=== PATIENT | female | born 1975 | race African-American/Black ===

== ENCOUNTER → 2023-11-26 | Outpatient (CLI) | payer OTHER ==
[~2023-11-26] MED LIST: Ondansetron Odt8 MG MM; PRAZ1 PO; Seroquel400 MG PO; VENL150ER PO; VITAMIN D-32000 UNIT PO
== END ==
LOC: LAB 13:38 → LAB SHORT 13:38
DX: Z09 Encounter for follow-up examination after completed treatment for conditions other than malignant neoplasm (principal); Z87.42 Personal history of other diseases of the female genital tract
CPT/HCPCS: 88305

== ENCOUNTER → 2023-12-10 | Outpatient (CLI) | payer OTHER ==
[2023-12-12 15:51] LABS: APTIMA MEDIA TYPE Unisex Swab; C. TRACHOMATIS BY TMA Negative (Negative); N. GONORRHOEAE BY TMA Negative (Negative); SPECIMEN SOURCE Vaginal; T. VAGINALIS BY TMA Negative (Negative)
== END ==
LOC: LAB SHORT 11:30 → LAB 11:30
PROVIDERS: Family Medicine
DX: Z11.3 Encounter for screening for infections with a predominantly sexual mode of transmission (principal)
CPT/HCPCS: 87491; 87591; 87661

== ENCOUNTER 2024-05-26 16:36 | Inpatient (IN) | payer OTHER ==
[~2024-05-26] VITALS: Ht 165.1 cm; Wt 77.1 kg
[~2024-05-26 16:36] MED LIST changes: +BENZTROPINE MESY1 M6 PO; +DULOXETINE HCL60 M1 PO; +EUTHYROX75 MC1 PO; +LISINOPRIL-HCT1 EACH PO; +TRAZ150T57 PO
[2024-05-26 17:45] LABS: BASOPHILS ABSOLUTE AUTO 0.03 K/mm3 (0.00-0.23); BASOPHILS PERCENT AUTO 0 % (0-2); EOSINOPHILS ABSOLUTE AUTO 0.33 K/mm3 (0.00-0.68); EOSINOPHILS PERCENT AUTO 4 % (0-6); Hematocrit 38.9 % (33.0-51.0); Hemoglobin 13.4 g/dL (11.5-16.0); IMMATURE GRAN ABSOLUTE AUTO 0.03 K/mm3 (0.00-0.10); IMMATURE GRAN PERCENT AUTO 0 % (0-1); LYMPHOCYTES ABSOLUTE AUTO 1.28 K/mm3 (0.84-5.20); LYMPHOCYTES PERCENT AUTO 17 % (21-46); MONOCYTES ABSOLUTE AUTO 0.85 K/mm3 (0.16-1.47); MONOCYTES PERCENT AUTO 11 % (4-13); Mean Corpuscular HGB 31.1 pg (26.0-34.0); Mean Corpuscular HGB Conc 34.4 g/dL (31.5-36.5); Mean Corpuscular Volume 90 fL (80-100); Mean Platelet Volume 9.7 fL (9.1-12.4); NEUTROPHILS ABSOLUTE AUTO 5.06 K/mm3 (1.96-9.15); NEUTROPHILS PERCENT AUTO 67 % (41-73); Platelet Count 299 K/mm3 (150-400); RDW Coefficient Variation 12.2 % (11.7-14.2); RDW Standard Deviation 40.5 fL (35.1-46.3); Red Blood Cell Count 4.31 M/mm3 (3.80-5.20); White Blood Cell Count 7.58 K/mm3 (4.00-11.30)
[2024-05-26 17:59] LABS: Albumin, Blood 3.2 g/dL (3.4-5.0); Albumin/Globulin Ratio 0.8 (0.8-1.8); Bilirubin, Total 0.8 mg/dL (0.1-1.0); Bun/Creatinine Ratio 11.8 (12.0-20.0); Calcium, Blood 9.4 mg/dL (8.5-10.1); Creatinine, Blood 0.85 mg/dL (0.40-1.00); Globulin, Blood 3.8 g/dL (2.2-4.0); Potassium, Blood 3.4 mmol/L (3.5-5.5)
[2024-05-26 22:47] LABS: Source, Urine Clean Catch
[2024-05-26 22:55] LABS: Appearance, Urine Clear (Clear); Bilirubin, Urine Neg (Neg); Blood, Urine Neg (Neg); Color, Urine Yellow (P-Yellow); Glucose Qualitative, Urine Neg (Neg); Ketones, Urine 3+ (Neg); Leukocyte Esterase, Urine Neg (Neg); Nitrite, Urine Neg (Neg); Protein, Urine 2+ (Neg); Specific Gravity, Urine 1.005 (1.003-1.022); Urobilinogen, Urine 2+ (Normal)
[2024-05-26 23:12] LABS: Bacteria Few /hpf; Red Blood Cells, Urine 0-2 /hpf (0-2); Squamous Epithelial Cells Many /hpf (Few); White Blood Cells, Urine 0-2 /hpf (0-5)
[2024-05-27] VITALS (18 sets, daily range): BP systolic 92–134; BP diastolic 59–97
[2024-05-27] MEDS ORDERED: Potassium Chl 20MEQ/Water100ML 100 ML IV SCH (00:05)
[2024-05-27] MEDS ORDERED: Lactated Ringer's 1,000 ML IV SCH ×2 (00:05→10:05)
[2024-05-27] MEDS ORDERED: NS 1,000 ML IV SCH (00:30)
[2024-05-27] MEDS ORDERED: FentaNYL Citrate 50 MCG/ML 2 ML Injection IV PRN ×2 (00:30→00:45)
[2024-05-27] MEDS ORDERED: Ondansetron HCl 2 MG / ML 2ML Vial IV PRN (00:30)
[2024-05-27] MEDS ORDERED: FLU VACC TS2024-25(6MOS UP)/PF 45 MCG/0.5 ML SYRINGE IM SCH (00:30)
[2024-05-27] MEDS ORDERED: Ketorolac Tromethamine 30mg Vial IV ONE (00:45)
[2024-05-27 05:49] LABS: BASOPHILS ABSOLUTE AUTO 0.04 K/mm3 (0.00-0.23); BASOPHILS PERCENT AUTO 1 % (0-2); EOSINOPHILS ABSOLUTE AUTO 0.27 K/mm3 (0.00-0.68); EOSINOPHILS PERCENT AUTO 4 % (0-6); Hematocrit 34.5 % (33.0-51.0); Hemoglobin 11.6 g/dL (11.5-16.0); IMMATURE GRAN ABSOLUTE AUTO 0.02 K/mm3 (0.00-0.10); IMMATURE GRAN PERCENT AUTO 0 % (0-1); LYMPHOCYTES ABSOLUTE AUTO 1.48 K/mm3 (0.84-5.20); LYMPHOCYTES PERCENT AUTO 22 % (21-46); MONOCYTES ABSOLUTE AUTO 0.78 K/mm3 (0.16-1.47); MONOCYTES PERCENT AUTO 12 % (4-13); Mean Corpuscular HGB 30.9 pg (26.0-34.0); Mean Corpuscular HGB Conc 33.6 g/dL (31.5-36.5); Mean Corpuscular Volume 92 fL (80-100); Mean Platelet Volume 10.2 fL (9.1-12.4); NEUTROPHILS ABSOLUTE AUTO 4.01 K/mm3 (1.96-9.15); NEUTROPHILS PERCENT AUTO 61 % (41-73); Platelet Count 238 K/mm3 (150-400); RDW Coefficient Variation 12.2 % (11.7-14.2); RDW Standard Deviation 40.8 fL (35.1-46.3); Red Blood Cell Count 3.75 M/mm3 (3.80-5.20)
--- NOTE | 2024-05-27 06:30 | NUR ---
PT RECEIVED PER ER TO RM 228 PER W/C.A/O SEE VS, ORIENTED TO RM AND CALL LIGHT SYSTEM.RESTING IN BED WITH WARM BLANKETS.LAB NOTIFIED THEY NEED TO REDRAW LABS.PT AWARE.
[2024-05-27 09:19] LABS: Albumin/Globulin Ratio 0.9 (0.8-1.8); Bilirubin, Total 0.9 mg/dL (0.1-1.0); Bun/Creatinine Ratio 10.8 (12.0-20.0); Calcium, Blood 9.1 mg/dL (8.5-10.1); Creatinine, Blood 0.83 mg/dL (0.40-1.00); Globulin, Blood 3.4 g/dL (2.2-4.0); Potassium, Blood 3.8 mmol/L (3.5-5.5); Total Protein, Blood 6.4 g/dL (6.4-8.2)
[2024-05-27] MEDS ORDERED: CeFAZolin Sodium 2,000 MG in NS 100 ML IV SCH (10:55)
--- NOTE | 2024-05-27 11:03 | NUR ---
DR. RICH IN ROOM AT ABOUT 0747
--- NOTE | 2024-05-27 11:03 | NUR ---
PT TO OR AT THIS TIME
[2024-05-27] MEDS ORDERED: propofoL 20 ML IV ONE (11:22)
[2024-05-27] MEDS ORDERED: FentaNYL Citrate 50 MCG/ML 2 ML Injection ONE ×2 (11:22→12:36)
[2024-05-27] MEDS ORDERED: Bupivacaine 0.5% HCl 5 MG/ML 30MLVIAL ONE (11:53)
[2024-05-27] MEDS ORDERED: Lidocaine 2% Jelly Uro-Jet ONE (11:59)
[2024-05-27] MEDS ORDERED: Oxymetazoline 0.05% Nasal Relief Spray 15mL BTL ONE (11:59)
[2024-05-27] MEDS ORDERED: Midazolam HCl 1MG / ML 2ML Vial ONE (12:07)
[2024-05-27] MEDS ORDERED: Midazolam HCl 1MG / ML 2ML Vial IV SCH (12:10)
[2024-05-27] MEDS ORDERED: Ondansetron HCl 2 MG / ML 2ML Vial ONE (12:53)
[2024-05-27] MEDS ORDERED: Rocuronium Bromide 10 MG/ML 5ML Injection IV ONE (12:53)
[2024-05-27] MEDS ORDERED: Ketorolac Tromethamine 30mg Vial ONE (12:53)
[2024-05-27] MEDS ORDERED: SuccINYLCHOLINE Chloride 100 MG/5 ML 5MLSYR ONE (12:53)
[2024-05-27] MEDS ORDERED: Dexamethasone Sod Phos 10 MG/ML 1ML VIAL ONE (12:53)
[2024-05-27] MEDS ORDERED: Sugammadex Sodium 200 MG/2ML SDV (100 MG/ML) ONE (13:12)
--- NOTE | 2024-05-27 15:10 | NUR ---
POST OP: REPORT RECEIVED FROM ENGINE TURNER. PT TO UNIT AT 1420. A/O, VSS. SURGICAL SITES WNL . PT DENIES PAIN AT THIS TIME. GIVEN CALL LIGHT AND INSTRUCTED TO CALL STAFF FOR ASSISTANCE FIRST TIME OOB.
--- NOTE | 2024-05-27 17:42 | NUR ---
SUMMARY: PT HAS DONE WELL POST OP. NO PAIN. TOLERATING CLEAR LIQ DIET. SURGICAL SITES WNL. VSS, A/O. PT HAS AMBULATED AND VOIDED. NO SAFETY CONCERNS, PT USES CALL LIGHT.
[2024-05-27] MEDS ORDERED: TraZODone HCl 50 MG Tab PO SCH (21:00)
[2024-05-27] MEDS ORDERED: Calcium Carbonate 500 MG Tab Chew PO PRN (22:10)
[2024-05-28 00:07] VITALS: BP 116/81
[2024-05-28 04:14] VITALS: BP 97/62
--- NOTE | 2024-05-28 04:21 | NUR ---
SHIFT SUMMARY POD1. X4 ABD LAP SITES CDI, WELL APPROX. PT AMBULATING INDEPENDENTLY, UP TO BATHROOM AD ATTILA. PAIN MANAGED WITH NPIS AND PER EMAR. DENIES N/V. MEGHAN PO CLEARS WELL. X1 LOOSE BM, LIQUID BROWN. PT VOICED UNDERSTANDING OF PLAN OF CARE, DENIES QUESTIONS/CONCERNS AT THIS TIME.
[2024-05-28 07:38] VITALS: BP 91/63
[2024-05-28] MEDS ORDERED: HYDROcodone 5-APAP 325 TAB PO PRN (08:55)
[2024-05-28 15:24] VITALS: BP 93/69
--- NOTE | 2024-05-28 16:05 | NUR ---
PT STABLE POST OP DAY #1 VOLVULUS RELEASE. LAP SITES CDI. PT HAVING FREQUENT LOOSE STOOL. PT VOIDING WELL. TOLERATING LIQUID DIET, MAY ADVANCE TOLERATED. IV S.L. NO NAUSEA. PT INDEP IN ROOM. STARTED ON PO PAIN MEDS THIS SHIFT. PAIN MANAGED WITH PO AND IV PAIN MEDS. TELE DC'D THIS SHIFT. PT USES CALL LIGHT APPROPRIATELY NEEDED.
--- NOTE | 2024-05-28 18:04 | NUR ---
SHIFT SUMMARY POD 1 REMOVAL OF GASTRIC BAND. LAP SITES X4 C/D/I. NO ACUTE EVENTS SINCE ACQUIRING PT THIS AFTERNOON. PT AMBULATED HALLWAY TWICE. PT REPORTS PASSING FLATTUS AND HAVING LOOSE BOWEL MOVEMENTS. EATING/DRINKING/VOIDING. VSS. CALL LIGHT WITHIN REACH. BED IN LOWEST POSITION.
[2024-05-28 19:41] VITALS: BP 105/83
[2024-05-28] MEDS ORDERED: Prazosin HCl 1 MG Cap PO SCH (21:00)
--- NOTE | 2024-05-29 04:31 | NUR ---
SHIFT SUMMARY POD2. X4 LAP SITES WITH GAUZE & TEGA, DRESSINGS CDI. PAIN MANAGED UTILIZING NPIS AND PER EMAR. AMBULATING IND TO BATHROOM AD ATTILA. PASSING FLATUS AND SOME LOOSE STOOL, BROWN. MEGHAN PO WELL. PT ABLE TO REST DURING SHIFT. PT VOICED UDNERSTANDING OF PLAN OF CARE, DENIES QUESTIONS/CONCERNS AT THIS TIME.
[2024-05-29 05:15] VITALS: BP 106/77
[2024-05-29] MEDS ORDERED: Levothyroxine Sodium 0.075 MG Tab PO SCH (06:00)
[2024-05-29 07:20] VITALS: BP 104/72
[2024-05-29] MEDS ORDERED: Benztropine Mesylate 1 MG Tab PO SCH (09:00)
[2024-05-29] MEDS ORDERED: HydroCHLOROthiazide 25 mg Tab PO SCH (09:00)
[2024-05-29] MEDS ORDERED: Lisinopril 20 MG Tab PO SCH (09:00)
[2024-05-29] MEDS ORDERED: DULoxetine HCL 60 MG Capsule DR PO SCH (09:00)
[2024-05-29] MEDS ORDERED: HYDR1TAB94 PO (10:37)
[2024-05-29] MEDS ORDERED: PRAZ2 PO (10:43)
--- NOTE | 2024-05-29 11:10 | NUR ---
DISCHARGE NOTE PT VERBALIZED UNDERSTANDING OF DISCHARGE INSTRUCTIONS. EATING/DRINKING/VOIDING WITHOUT ISSUE. PASSING GAS THROUGHOUT THE MORNING. VSS. LAP SITES C/D/I WITHOUT DRAINAGE. WALKED OUT TO CAR WHERE FRIEND IS DRIVING HER HOME.
== END 2024-05-29 11:09 | disposition home or self-care (01) | DRG 326 ==
LOC: ER 16:36 → SURS 05-27 00:28 → ERHOLD 05-27 00:28 → SURS 05-27 06:30
PROVIDERS: Physician Assistant; Surgery; ADMIT Internal Medicine
PROC: 0DSH4ZZ Reposition Cecum, Percutaneous Endoscopic Approach (ICD-10-PCS; 2024-05-27)
PROC: 0DP64CZ Removal of Extraluminal Device from Stomach, Percutaneous Endoscopic Approach (ICD-10-PCS; principal; 2024-05-27 12:30)
DX: K95.09 Other complications of gastric band procedure (principal); K56.2 Volvulus; K56.609 Unspecified intestinal obstruction, unspecified as to partial versus complete obstruction; I10 Essential (primary) hypertension; E87.6 Hypokalemia; E03.9 Hypothyroidism, unspecified; Y73.8 Miscellaneous gastroenterology and urology devices associated with adverse incidents, not elsewhere classified; Z88.8 Allergy status to other drugs, medicaments and biological substances; Z79.899 Other long term (current) drug therapy; Z79.890 Hormone replacement therapy
CPT/HCPCS: 36415; 74177; 80053; 81001; 81025; 83605; 83690; 83880; 85025; 86140; 87040; 99285-25; A9270; J0330; J0690; J1100; J1885; J2250; J2405; J2704; J3010; J3480; J7030; J7120; Q9967

== ENCOUNTER → 2025-02-23 | Outpatient (CLI) | payer OTHER ==
[~2025-02-23] MED LIST changes: +HYDR1TAB94 PO; +PRAZ2 PO
[2025-02-23 15:22] LABS: Bacterial Vaginosis PCR Negative (NEGATIVE); Candida Group, PCR NOT DETECTED (NOT DETECT); Candida glabrata-krusei, PCR NOT DETECTED (NOT DETECT)
[2025-03-10 17:14] LABS: HPVG SOURCE Cervical
== END | disposition home or self-care (01) ==
LOC: LAB 12:55 → LAB SHORT 12:55
PROVIDERS: Obstetrics & Gynecology
DX: Z01.419 Encounter for gynecological examination (general) (routine) without abnormal findings (principal); N89.8 Other specified noninflammatory disorders of vagina
CPT/HCPCS: 81515; 87624; 87625; G0123